=== PATIENT | female | born 1985 | race Caucasian/White ===

== ENCOUNTER → 2017-07-06 | Outpatient (CLI) | payer OTHER ==
[~2017-07-06] MED LIST: DEPO-PROVER400 MG/ML IM; IBREN600 MG PO; IRON325 M1 PO; MAXALT MLT5 MG PO; NORCO 325 MG-51 TAB PO; PRENATAL1 TA1 PO; VISTARIL 2525 MG/CAP PO
== END ==
LOC: COL.RAD 06-21 10:30
DX: M75.81 Other shoulder lesions, right shoulder (principal)